=== PATIENT | female | born 1980 | race Caucasian/White ===

== ENCOUNTER 2019-04-08 12:26 | Inpatient (IN) ==
[2019-04-08] MEDS ORDERED: ONDANSETRON 4 MG/2 ML VIAL IV STA (12:57)
[2019-04-08 13:57] LABS: Basophils % 0.1 % (0.0-0.8); Hematocrit 35.2 VOL% (35.7-47.0); Hemoglobin 11.5 GM/DL (12.0-16.0); Immature Granulocytes % 0.3 %; Immature Granulocytes Absolute 0.05 #; Lymphocytes # 0.8 10*3/uL (1.4-4.0); Lymphocytes % 5.3 % (21.3-54.2); Mean Corpuscular HGB Conc 32.7 GM/DL (32-36); Mean Corpuscular Volume 91.4 FL (87-102); Mean Platelet Volume 9.5 FL (9.6-12.0); Monocytes % 6.5 % (1.7-12.7); Neutrophils % 87.8 % (38.7-73.9); Platelet Count 341 T/CUMM (130-400); Red Blood Count 3.85 MC/CUMM (3.8-5.5); Red Cell Distribution Width 12.9 % (9.3-17.3); White Blood Count 14.5 T/CUMM (4-12)
[2019-04-08 14:32] LABS: Alanine Aminotransferase < 6 U/L (13-56); Alkaline Phosphatase 62 U/L (45-117); Aspartate Amino Transferase 9 U/L (0-37); Blood Urea Nitrogen 59 MG/DL (7-18); Calcium 9.1 MG/DL (8.5-10.1); Glucose 88 MG/DL (74-106); Osmolality,Calculated 288.8 MOS/KG (273-304); Total Protein 6.6 G/DL (6.4-8.3)
[2019-04-08] MEDS ORDERED: FLUCONAZOLE INJ 200 MG in PREMIX 1 EACH IV ONE (14:42)
[2019-04-08] MEDS ORDERED: MORPHINE 4 MG/1 ML VIAL IV PRN (15:25)
[2019-04-08] MEDS ORDERED: DOCUSATE SODIUM 100 MG CAPSULE PO PRN (15:25)
[2019-04-08] MEDS ORDERED: PROMETHAZINE 25 MG TABLET PO PRN (15:25)
[2019-04-08] MEDS ORDERED: ACETAMINOPHEN 325 MG TABLET PO PRN (15:25)
[2019-04-08 17:43] LABS: Thyroid Stimulating Hormone 1.7 uIU/ml (0.358-3.74)
[2019-04-08] MEDS: ONDANSETRON 4 MG/2 ML VIAL IV PRN (17:59)
[2019-04-08] MEDS: HYDROmorphone 2 MG/1 ML VIAL IV PRN (18:02)
[2019-04-08] MEDS ORDERED: hydrALAZINE 20 MG/1 ML VIAL IV ONE (22:52)
[2019-04-09] MEDS: ONDANSETRON 4 MG/2 ML VIAL IV PRN ×3 (02:24→18:17)
[2019-04-09 05:05] LABS: Basophils % 0.2 % (0.0-0.8); Eosinophils % 0.3 % (0.00-10.9); Hematocrit 34.4 VOL% (35.7-47.0); Hemoglobin 10.9 GM/DL (12.0-16.0); Immature Granulocytes % 0.6 %; Immature Granulocytes Absolute 0.07 #; Lymphocytes # 0.9 10*3/uL (1.4-4.0); Lymphocytes % 7.1 % (21.3-54.2); Mean Corpuscular HGB Conc 31.7 GM/DL (32-36); Neutrophils % 84.8 % (38.7-73.9); Platelet Count 332 T/CUMM (130-400); Red Cell Distribution Width 12.8 % (9.3-17.3); White Blood Count 12.2 T/CUMM (4-12)
[2019-04-09 05:37] LABS: Alanine Aminotransferase < 6 U/L (13-56); Albumin 1.8 G/DL (3.4-5.0); Alkaline Phosphatase 83 U/L (45-117); Aspartate Amino Transferase 8 U/L (0-37); Blood Urea Nitrogen 69 MG/DL (7-18); Glucose 92 MG/DL (74-106); Osmolality,Calculated 292.8 MOS/KG (273-304); Total Protein 6.2 G/DL (6.4-8.3)
[2019-04-09] MEDS: amLODIPine 10 MG TABLET PO SCH (09:36)
[2019-04-09] MEDS: PANTOPRAZOLE 40 MG TABLET PO SCH (09:39)
[2019-04-09] MEDS: HYDROmorphone 2 MG/1 ML VIAL IV PRN ×2 (09:39→18:19)
[2019-04-09] MEDS ORDERED: SODIUM CHLORIDE 0.9% 250 ML IV SCH (12:00)
[2019-04-09] MEDS ORDERED: PROPOFOL 200 MG/20 ML VIAL IV ONE (12:56)
[2019-04-09] MEDS ORDERED: fentaNYL 100 MCG/2 ML VIAL ONE (12:56)
[2019-04-09] MEDS ORDERED: MIDAZOLAM 2 MG/2 ML VIAL ONE ×2 (12:56→12:57)
[2019-04-09] MEDS ORDERED: ONDANSETRON 4 MG/2 ML VIAL ONE (12:57)
[2019-04-09] MEDS ORDERED: KETAMINE 500 MG/10 ML VIAL ONE (12:58)
[2019-04-09] MEDS ORDERED: FLUCONAZOLE INJ 100 MG in PREMIX 1 EACH IV SCH (15:30)
[2019-04-09] MEDS ORDERED: FLUCONAZOLE INJ 200 MG in PREMIX 1 EACH IV SCH (15:30)
[2019-04-09] MEDS ORDERED: HEPARIN 10,000 UNIT/10 ML VIAL IV SCH (16:00)
[2019-04-09] MEDS ORDERED: FLUCONAZOLE INJ 100 MG in IV BAG 1 EACH IV SCH (18:00)
[2019-04-10 04:59] LABS: Basophils % 0.4 % (0.0-0.8); Eosinophils # 0.1 10*3/uL (0.0-0.87); Eosinophils % 1.7 % (0.00-10.9); Hematocrit 37.1 VOL% (35.7-47.0); Hemoglobin 11.4 GM/DL (12.0-16.0); Immature Granulocytes % 0.5 %; Immature Granulocytes Absolute 0.04 #; Lymphocytes # 0.8 10*3/uL (1.4-4.0); Lymphocytes % 9.2 % (21.3-54.2); Mean Corpuscular HGB Conc 30.7 GM/DL (32-36); Mean Corpuscular Volume 94.9 FL (87-102); Mean Platelet Volume 9.8 FL (9.6-12.0); Monocytes % 7.9 % (1.7-12.7); Neutrophils % 80.3 % (38.7-73.9); Platelet Count 340 T/CUMM (130-400); Red Blood Count 3.91 MC/CUMM (3.8-5.5); Red Cell Distribution Width 13.1 % (9.3-17.3); White Blood Count 8.4 T/CUMM (4-12)
[2019-04-10 05:39] LABS: Alanine Aminotransferase < 6 U/L (13-56); Alkaline Phosphatase 72 U/L (45-117); Aspartate Amino Transferase 11 U/L (0-37); Blood Urea Nitrogen 34 MG/DL (7-18); Calcium 9.3 MG/DL (8.5-10.1); Glucose 81 MG/DL (74-106); Osmolality,Calculated 279.8 MOS/KG (273-304); Total Protein 6.8 G/DL (6.4-8.3)
[2019-04-10] MEDS: amLODIPine 10 MG TABLET PO SCH (08:32)
[2019-04-10] MEDS: PANTOPRAZOLE 40 MG TABLET PO SCH (08:32)
[2019-04-10 11:32] VITALS: BP 147/87
== END 2019-04-10 14:40 | disposition home or self-care (01) | DRG 919 ==
LOC: N.ED 12:26 → SUATTDRO 15:06 → N.EDINP 15:06 → N.3E 16:22
PROVIDERS: ADMIT Hospitalist; ATTEND Internal Medicine

== ENCOUNTER 2020-12-14 09:40 | Inpatient (IN) ==
[2020-12-14] MEDS ORDERED: SODIUM CHLORIDE 0.9% 250 ML IV SCH (10:00)
[2020-12-14] MEDS ORDERED: fentaNYL 100 MCG/2 ML VIAL ONE ×2 (10:01→11:10)
[2020-12-14] MEDS ORDERED: LIDOCAINE 2% 5 ML VIAL ONE (10:01)
[2020-12-14] MEDS ORDERED: MIDAZOLAM 2 MG/2 ML VIAL ONE (10:01)
[2020-12-14] MEDS ORDERED: propofoL 200 MG/20 ML VIAL IV ONE (10:01)
[2020-12-14] MEDS ORDERED: FAMOTIDINE 20 MG TABLET PO ONE (10:08)
[2020-12-14] MEDS ORDERED: DIAZEPAM 5 MG TABLET PO ONE (10:08)
[2020-12-14] MEDS ORDERED: SCOPOLAMINE 1.5 MG PATCH TRANSDERM ONE (10:08)
[2020-12-14] MEDS ORDERED: ACETAMINOPHEN 500 MG TABLET PO ONE (10:08)
[2020-12-14] MEDS ORDERED: GABAPENTIN 400 MG CAPSULE PO ONE (10:08)
[2020-12-14 10:17] LABS: Basophils # 0.1 10*3/uL (0.0-0.2); Basophils % 0.9 % (0.0-0.8); Eosinophils # 0.1 10*3/uL (0.0-0.87); Hematocrit 25.4 VOL% (35.7-47.0); Hemoglobin 8.1 GM/DL (12.0-16.0); Immature Granulocytes % 0.5 %; Immature Granulocytes Absolute 0.04 #; Lymphocytes # 1.2 10*3/uL (1.4-4.0); Mean Corpuscular HGB Conc 31.9 GM/DL (32-36); Mean Corpuscular Volume 105.8 FL (87-102); Mean Platelet Volume 9.3 FL (9.6-12.0); Monocytes % 6.1 % (1.7-12.7); Neutrophils % 77.5 % (38.7-73.9); Platelet Count 417 T/CUMM (130-400); Red Cell Distribution Width 15.8 % (9.3-17.3); White Blood Count 8.7 T/CUMM (4-12)
[2020-12-14] MEDS ORDERED: ROPIVACAINE 0.5% 30 ML VIAL ONE ×2 (10:18→12:07)
[2020-12-14] MEDS ORDERED: DEXAMETHASONE 4 MG/1 ML VIAL ONE ×2 (10:18→10:58)
[2020-12-14] MEDS ORDERED: ceFAZolin 2,000 MG in PREMIX 1 EACH IV ONE (10:32)
[2020-12-14 10:33] LABS: Calcium 9.8 MG/DL (8.5-10.1); Osmolality,Calculated 277.2 MOS/KG (273-304); Potassium 3.8 MMOL/L (3.5-5.1)
[2020-12-14] MEDS ORDERED: FAMOTIDINE 20 MG/2 ML VIAL IV ONE (10:36)
[2020-12-14] MEDS ORDERED: SEVOFLURANE 1 UNIT/15 MINUTE INH ONE ×5 (10:58→11:50)
[2020-12-14] MEDS ORDERED: ONDANSETRON 4 MG/2 ML VIAL ONE (10:58)
[2020-12-14] MEDS ORDERED: PHENYLEPHRINE 1 MG/10 ML SYRINGE IV ONE ×2 (10:58→11:41)
[2020-12-14] MEDS ORDERED: ONDANSETRON 4 MG/2 ML VIAL IV PRN ×2 (11:00→12:34)
[2020-12-14] MEDS ORDERED: PROMETHAZINE 25 MG/1 ML VIAL IM PRN (11:00)
[2020-12-14] MEDS ORDERED: MORPHINE 4 MG/1 ML VIAL IV PRN ×2 (11:00→11:09)
[2020-12-14] MEDS ORDERED: diphenhydrAMINE CAP 25 MG CAPSULE PO PRN (11:00)
[2020-12-14] MEDS ORDERED: ACETAMINOPHEN 1,000 MG/100 ML VIAL IV ONE (11:02)
[2020-12-14] MEDS ORDERED: ONDANSETRON 4 MG TABLET PO PRN (11:04)
[2020-12-14] MEDS ORDERED: ETOMIDATE 40 MG/20 ML VIAL IV ONE (11:13)
[2020-12-14] MEDS ORDERED: SODIUM CHLORIDE 0.9% 250 ML IV ONE (11:44)
[2020-12-14] MEDS ORDERED: DEXMEDETOMIDINE 200 MCG/2 ML VIAL ONE (11:48)
[2020-12-14] MEDS ORDERED: HYDROmorphone 2 MG/1 ML VIAL ONE (12:12)
[2020-12-14] MEDS: HYDROmorphone 2 MG/1 ML VIAL IV PRN ×2 (12:12→12:18)
[2020-12-14] MEDS: LIDOCAINE/PRILOCAINE CREAM 5 GM TUBE TOP SCH (13:44)
[2020-12-14] MEDS: ceFAZolin 1,000 MG in SYRINGE 1 EACH IV SCH (17:01)
[2020-12-15] MEDS: ceFAZolin 1,000 MG in SYRINGE 1 EACH IV SCH ×2 (03:18→12:49)
[2020-12-15] MEDS: CETIRIZINE 10 MG TABLET PO SCH (08:06)
[2020-12-15] MEDS: ETHINYL ESTRADIOL PO SCH (08:06)
[2020-12-15] MEDS: NORGESTIMATE PO SCH (08:06)
[2020-12-15] MEDS: LIDOCAINE/PRILOCAINE CREAM 5 GM TUBE TOP SCH (10:35)
[2020-12-15] MEDS ORDERED: ceFAZolin 1,000 MG in SYRINGE 1 EACH IV SCH (13:00)
[2020-12-16] MEDS: MAGNESIUM HYDROXIDE SUSP 30 ML UDCUP PO PRN ×2 (06:41→11:13)
[2020-12-16] MEDS: NORGESTIMATE PO SCH (08:34)
[2020-12-16] MEDS: CETIRIZINE 10 MG TABLET PO SCH (08:34)
[2020-12-16] MEDS: ETHINYL ESTRADIOL PO SCH (08:34)
[2020-12-16] MEDS ORDERED: TUBERCULIN SKIN TEST 0.1 ML SYRINGE INTRADERM ONE (09:50)
[2020-12-16 11:05] VITALS: BP 89/49
[2020-12-16] MEDS: LIDOCAINE/PRILOCAINE CREAM 5 GM TUBE TOP SCH (12:57)
== END 2020-12-16 15:45 | disposition swing bed (61) | DRG 492 ==
LOC: N.OR 09:40 → N.SDSINP 09:40 → N.3E 13:10
PROVIDERS: ADMIT Orthopaedic Surgery; ATTEND Orthopaedic Surgery